=== PATIENT | female | born 1990 | race Caucasian/White ===

== ENCOUNTER 2016-10-17 13:58 | Emergency (ER) | payer OTHER ==
[2016-10-17 14:27] VITALS: BP 132/84; PULSE 100; RESP 18; TEMP 98
[2016-10-17] MEDS ORDERED: HYDROcodone/APAP 5-325MG 1 EACH TAB PO STA (15:08)
[2016-10-17] MEDS ORDERED: IBUPROFEN 600 MG TAB PO STA (15:08)
--- NOTE | 2016-10-17 15:12 | XR ---
Right ankle HISTORY: Pain and trauma 3 views of the right ankle There are 3 views of the right ankle submitted, comparison right foot same day There is marked soft tissue swelling. Some widening of the tibiotalar joint is noted laterally, there may be ligamentous laxity. There is no evident fracture. Bone mineralization and alignment are maint ained. IMPRESSION: No acute fracture or dislocation. Soft tissue swelling, there may be ligamentous laxity a t the ankle joint as described.
--- NOTE | 2016-10-17 15:13 | XR ---
Right foot HISTORY: Trauma and pain 3 views of the right foot Correlation to right ankle same date Bone mineralization, joint spaces and alignment are maintained IMPRESSION: No fracture or dislocation. Follow-up as indicated.
--- NOTE | 2016-10-17 15:31 | ED ---
Lower Extremity Injury HPI - General Chief Complaint: Extremity Injury, Lower Stated Complaint: Ankle Pain Time Seen by Provider: 10/17/16 14:45 Source: patient, RN notes reviewed Mode of arrival: wheelchair Limitations: no limitations - History of Present Illness Initial Comments: Patient is a 26-year-old female presents to the emergency room for evaluation of right ankle pain. Patient states she was walking in her yard and twisted her ankle an a hole in the ground. Patient states she crawled back into her house. Patient states that she has been having extreme pain on the lateral portion of her ankle and swelling ever since. Patient states she drove herself here. Patient states she experiences some tingling in her fourth and fifth digits. Patient states the pain radiates to the top of her foot. Patient denies taking anything for pain. Patient denies any other injuries during incident. Patient states she is having 10 out of 10 constant throbbing pain. Patient states the pain is worse when she puts weight on her foot or moves her ankle. - Related Data Previous Rx's Medication Instructions Recorded HYDROcodone/APAP 5-325MG [[place] 1 tab PO Q6HR PRN #20 tab 10/17/16 5-325] Ibuprofen [Motrin] 600 mg PO Q6HR PRN #20 tab 10/17/16 Allergies Allergy/AdvReac Type Severity Reaction Status Date / Time No Known Allergies Allergy Verified 10/17/16 14:31 Review of Systems ROS Statement: Those systems with pertinent positive or pertinent negative responses have been documented in the HPI. ROS Other: All systems not noted in ROS Statement are negative. Past Medical History Past Medical History: No Reported History History of Any Multi-Drug Resistant Organisms: None Reported Past Surgical History: No Surgical Hx Reported Past Psychological History: Depression Smoking Status: Never smoker Past Alcohol Use History: None Reported Past Drug Use History: None Reported General Exam - General Exam Comments Initial Comments: Sitting in wheelchair, no acute distress. Limitations: no limitations General appearance: alert, in no apparent distress Head exam: Present: atraumatic, normocephalic, normal inspection Eye exam: Present: normal appearance ENT exam: Present: normal exam Neck exam: Present: normal inspection Respiratory exam: Absent: respiratory distress Right Ankle exam: Present: tenderness (Lateral malleolus), swelling (Lateral malleolus ). Absent: full ROM (Limited range of motion secondary to pain) Foot/Toe exam: Present: tenderness (Dorsal portion of foot over the third, fourth and fifth metatarsal bones). Absent: full ROM (Limited range of motion secondary to pain) Neurovascular tendon exam: Present: no vascular compromise. Absent: pulse deficit (2+ dorsal pedal and posterior tibial pulses), abnormal cap refill ( Capillary refill less than 2 seconds) Back exam: Present: normal inspection Neurological exam: Present: alert, oriented X3, CN II-XII intact, normal gait Psychiatric exam: Present: normal affect, normal mood Skin exam: Present: warm, dry, intact, normal color. Absent: rash Course Vital Signs 10/17/16 14:24 Temperature 98.0 F Pulse Rate 100 Respiratory 18 Rate Blood Pressure 132/84 O2 Sat by Pulse 100 Oximetry Medical Decision Making - Medical Decision Making Patient is a 26-year-old female presents emergency room for evaluation of right ankle/foot pain. ight ankle x-ray: No acute fracture or dislocation. Soft tissue swelling. There may be ligamentous laxity at the ankle joint is described. Foot x-ray shows no acute fractures or dislocations. Patient placed in [place] wrap and ankle stirrup and given crutches and advised to follow-up with obstetrics specialist for reevaluation. Patient states she understands everything that was discussed with her. Return parameters discussed. - Radiology Data Radiology results: report reviewed, image reviewed Disposition Clinical Impression: Right ankle sprain Disposition: HOME SELF-CARE Condition: Good Instructions: Ankle Sprain (ED) Additional Instructions: Rest, elevate and ice on and off for 10-15 minutes for the next 24-48 hours. Take medications as needed for pain. Nonweightbearing for 1-2 days. Please follow-up with obstetrics specialist in 24-48 hours for reevaluation. If new symptoms develop or symptoms worsen, please return to the ER. Prescriptions: HYDROcodone/APAP 5-325MG [[place] 5-325] 1 tab PO Q6HR PRN #20 tab PRN Reason: Pain Ibuprofen [Motrin] 600 mg PO Q6HR PRN #20 tab PRN Reason: Pain Referrals: Fernando Ricks DO [Doctor of Osteopathic Medicine] - 1-2 days Time of Disposition: 15:33
== END 2016-10-17 15:49 | disposition home or self-care (01) ==
LOC: EC 13:58
DX: S93.401A Sprain of unspecified ligament of right ankle, initial encounter (principal); X50.1XXA Overexertion from prolonged static or awkward postures, initial encounter; Y93.01 Activity, walking, marching and hiking; Y92.096 Garden or yard of other non-institutional residence as the place of occurrence of the external cause
CPT/HCPCS: 73610; 73630; 99283; 29515; L4350

== ENCOUNTER 2017-08-03 01:19 | Emergency (ER) | payer OTHER ==
[2017-08-03 01:28] VITALS: BP 132/89; PULSE 109; RESP 20; TEMP 99.1
[2017-08-03] MEDS ORDERED: ACETAMINOPHEN TAB 500 MG TAB PO STA (01:48)
[2017-08-03] MEDS ORDERED: ONDANSETRON ODT 4 MG TAB PO STA (01:48)
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
--- NOTE | 2017-08-03 03:02 | XR ---
EXAMINATION TYPE: XR cervical spine limited DATE OF EXAM: 08/03/2017 COMPARISON: NONE HISTORY: Shoulder pain TECHNIQUE: 3 views FINDINGS: Cervical vertebra have normal spacing and alignment. Posterior elements are intact. Atlanto axial facet joint is normal. There are no cervical ribs. IMPRESSION: Negative cervical spine exam.
--- NOTE | 2017-08-03 03:03 | XR ---
EXAMINATION TYPE: XR thoracic spine complete DATE OF EXAM: 08/03/2017 COMPARISON: NONE HISTORY: Neck pain and back pain TECHNIQUE: 3 views FINDINGS: There is a slight mid thoracic dextroscoliosis And upper thoracic levoscoliosis Disc spaces are fairly well-maintained. Posterior limits are intact. I see no thoracic paraspinal mass. There is no sign of compression fracture. IMPRESSION: Minimal scoliosis. No fracture.
[2017-08-03] MEDS ORDERED: ONDANSETRON 4 MG ODT STARTER PACK 2 TAB BTL PO STA (03:23)
== END 2017-08-03 03:28 | disposition home or self-care (01) ==
LOC: EC 01:19
DX: S16.1XXA Strain of muscle, fascia and tendon at neck level, initial encounter (principal); M54.6 Pain in thoracic spine; M41.84 Other forms of scoliosis, thoracic region; V43.52XA Car driver injured in collision with other type car in traffic accident, initial encounter; Y92.410 Unspecified street and highway as the place of occurrence of the external cause
CPT/HCPCS: 81025; 72072; 72040; 99284; S0119

== ENCOUNTER 2017-09-02 21:08 | Emergency (ER) | payer OTHER ==
--- NOTE | 2017-09-02 21:55 | XR ---
EXAMINATION TYPE: XR chest 2V DATE OF EXAM: 09/02/2017 CLINICAL HISTORY: Pain TECHNIQUE: Frontal and lateral views of the chest are obtained. COMPARISON: None FINDINGS: There is no focal air space opacity, pleural effusion, or pneumothorax seen. The cardiac silhouette size is within normal limits. The osseous structures are intact. IMPRESSION: No acute cardiopulmonary process.
[2017-09-02] MEDS ORDERED: IPRATROPIUM-ALBUTEROL 3 ML NEB INHALATION STA (22:01)
[2017-09-02 22:19] VITALS: PULSE 82
--- NOTE | 2017-09-02 23:01 | ED ---
General Adult HPI - General Chief complaint: Upper Respiratory Infection Stated complaint: SOB Time Seen by Provider: 09/02/17 21:46 Source: patient, RN notes reviewed Mode of arrival: ambulatory Limitations: no limitations - History of Present Illness Initial comments: 27-year-old female presents to the emergency department for a chief complaint of cough and congestion 3 days. Patient states she has been very congested and feels like her ears are popping. Patient denies pain in her ears. Patient has also had a productive cough. Patient denies shortness of breath. Patient denies history of asthma or smoking. Patient states she had bronchitis last year for which she has an inhaler for. Patient has only tried nasal spray for this bout of cough and congestion. She states her mother wanted her to take Claritin but she didn't think it would work. Patient denies any other complaints such as shortness of breath, chest pain, abdominal pain, headaches, dizziness, visual changes, nausea or vomiting. - Related Data Home Medications Medication Instructions Recorded Confirmed Loratadine [Claritin] 10 mg PO ONCE PRN 09/02/17 09/02/17 Previous Rx's Medication Instructions Recorded Albuterol Inhaler [Ventolin Hfa 1 - 2 puff INHALATION Q6HR PRN #1 09/02/17 Inhaler] inhaler Azithromycin [Zithromax Z-pack] 250 mg PO DIRECTED #6 tab 09/02/17 Benzonatate [Tessalon Perles] 100 mg PO Q8H PRN #15 capsule 09/02/17 methylPREDNISolone Dose Pack 4 mg PO DIRECTED #21 package 09/02/17 [Medrol Dose Pack] Allergies Allergy/AdvReac Type Severity Reaction Status Date / Time No Known Allergies Allergy Verified 09/02/17 21:49 Review of Systems ROS Statement: Those systems with pertinent positive or pertinent negative responses have been documented in the HPI. ROS Other: All systems not noted in ROS Statement are negative. Past Medical History Past Medical History: No Reported History History of Any Multi-Drug Resistant Organisms: None Reported Past Surgical History: No Surgical Hx Reported Past Psychological History: Depression Smoking Status: Never smoker Past Alcohol Use History: Occasional Past Drug Use History: None Reported General Exam Limitations: no limitations General appearance: alert, in no apparent distress Head exam: Present: atraumatic, normocephalic, normal inspection Eye exam: Present: normal appearance, PERRL, EOMI. Absent: scleral icterus, conjunctival injection, periorbital swelling ENT exam: Present: normal oropharynx, mucous membranes moist, TM's normal bilaterally, other (patient has nasal congestion) Neck exam: Present: normal inspection, full ROM. Absent: tenderness, meningismus, lymphadenopathy Respiratory exam: Present: normal lung sounds bilaterally, other (Patient is coughing on exam). Absent: respiratory distress, wheezes, rales, rhonchi, stridor Cardiovascular Exam: Present: regular rate, normal rhythm, normal heart sounds. Absent: systolic murmur, diastolic murmur, rubs, gallop, clicks Course Vital Signs 09/02/17 09/02/17 09/02/17 21:14 22:12 22:19 Temperature 97.8 F Pulse Rate 98 80 82 Respiratory 20 16 16 Rate Blood Pressure 122/72 O2 Sat by Pulse 97 Oximetry 09/02/17 23:07 Temperature 98.0 F Pulse Rate 82 Respiratory 18 Rate Blood Pressure 128/70 O2 Sat by Pulse 98 Oximetry Medical Decision Making - Medical Decision Making 27-year-old female presents to the emergency department for a chief complaint of cough and congestion 3 days. Patient denies any shortness of breath or difficulty breathing. Patient has not really tried any [id number] things besides nasal spray which she will continue. Patient is afebrile and vitals are within normal limits: Temp is 97.8, pulse is 98, respirations 20, blood pressure 122/72, pulse ox 97% on room air. On exam patient's lungs are clear to auscultation bilaterally. Patient is visibly congested. Tympanic membranes are normal and throat is nonerythematous. Chest x-ray shows no acute cardiopulmonary process including pneumonia. Influenza and strep were negative. Patient will be treated with an albuterol inhaler, Tessalon Perles, Z -Jass, and steroid. She will continue to take nasal spray [id number]. She will take Motrin or Tylenol for pain or fever. She will return to the emergency Department if she has any worsening symptoms including spiking fevers or shortness of breath. She will follow up with primary care in 1-2 days. - Lab Data Lab Results 09/02/17 09/02/17 Range/Units 22:10 22:10 Influenza Type A RNA Not Detected (Not Detectd) Influenza Type B (PCR) Not Detected (Not Detectd) Group A Strep Rapid Negative (Negative) Disposition Clinical Impression: Upper respiratory infection Disposition: HOME SELF-CARE Condition: Good Instructions: Upper Respiratory Infection (ED) Additional Instructions: Please take prescriptions as directed. Please also take an [id number] decongestant and continue the nasal spray you have at home twice a day. Motrin and Tylenol for pain. Follow up with primary care in 1-2 days. You may call [facility] to set up an appointment if you cannot follow up with a primary care provider of your own. Return to the emergency department if you have any worsening symptoms, shortness of breath, trouble breathing, or high fevers. Prescriptions: Albuterol Inhaler [Ventolin Hfa Inhaler] 1 - 2 puff INHALATION Q6HR PRN #1 inhaler PRN Reason: Cough Azithromycin [Zithromax Z-pack] 250 mg PO DIRECTED #6 tab Benzonatate [Tessalon Perles] 100 mg PO Q8H PRN #15 capsule PRN Reason: Cough methylPREDNISolone Dose Pack [Medrol Dose Pack] 4 mg PO DIRECTED #21 package Is patient prescribed a controlled substance at d/c from ED?: No Referrals: None,Stated [Primary Care Provider] - 1-2 days Time of Disposition: 22:54
[2017-09-02 23:08] VITALS: BP 128/70; RESP 18; TEMP 98
== END 2017-09-02 23:08 | disposition home or self-care (01) ==
LOC: EC 21:08
DX: J06.9 Acute upper respiratory infection, unspecified (principal)
CPT/HCPCS: 71046; 87081; 87430; 87502; 94640; 99285

== ENCOUNTER 2021-09-13 15:54 | Emergency (ER) | payer OTHER ==
[2021-09-13 17:23] VITALS: TEMP 98.2
[2021-09-13 17:37] LABS: Appearance,Urine Cloudy (Clear); Bilirubin,Urine Negative (Negative); Blood,Urine Large (Negative); Color,Urine Yellow; Glucose,Urine (UA) Negative (Negative); Ketones,Urine Negative (Negative); Leukocyte Esterase,Urine Small (Negative); Mucus,Urine Rare /hpf; Nitrite,Urine Negative (Negative); Protein,Urine Trace (Negative); RBC,Urine >182 /hpf (0-5); Specific Gravity,Urine 1.018 (1.001-1.035); Squamous Epithelial Cell,Urine 1 /hpf (0-4); Urobilinogen,Urine <2.0 mg/dL (<2.0); WBC,Urine 13 /hpf (0-5)
[2021-09-13 18:24] LABS: Basophils % (A) 0 %; Eosinophils # (A) 0.2 k/uL (0-0.7); Eosinophils % (A) 2 %; HCT 39.5 % (34.0-46.0); HGB 12.8 gm/dL (11.4-16.0); Lymphocytes # (A) 2.4 k/uL (1.0-4.8); Lymphocytes % (A) 23 %; MCH 27.5 pg (25.0-35.0); MCHC 32.4 g/dL (31.0-37.0); MCV 84.9 fL (80.0-100.0); Mean Platelet Volume 7.2; Monocytes # (A) 0.4 k/uL (0-1.0); Monocytes % (A) 4 %; Neutrophils # (A) 7.6 k/uL (1.3-7.7); Neutrophils % (A) 71 %; Platelet Count 351 k/uL (150-450); RBC 4.65 m/uL (3.80-5.40); WBC 10.7 k/uL (3.8-10.6)
[2021-09-13 18:29] LABS: ALT 12 U/L (4-34); AST 17 U/L (14-36); African American GFR (CKD) >90 (>60 ml/min/1.73 sqM); Albumin 4.4 g/dL (3.5-5.0); Alkaline Phosphatase 77 U/L (38-126); Anion Gap 9 mmol/L; Blood Urea Nitrogen 11 mg/dL (7-17); Calcium 8.8 mg/dL (8.4-10.2); Carbon Dioxide 23 mmol/L (22-30); Chloride 107 mmol/L (98-107); Glucose 98 mg/dL (74-99); Non-African American GFR(CKD) >90 (>60 ml/min/1.73 sqM); Potassium 3.8 mmol/L (3.5-5.1); Sodium 139 mmol/L (137-145); Total Bilirubin 0.4 mg/dL (0.2-1.3); Total Protein 7.6 g/dL (6.3-8.2)
[2021-09-13] MEDS ORDERED: SODIUM CHLORIDE 0.9% 1,000 ML IV STA (22:07)
[2021-09-13] MEDS ORDERED: ONDANSETRON 4 MG/2 ML VIAL IVP STA (22:07)
[2021-09-13] MEDS ORDERED: KETOROLAC 15 MG/ML 1 ML VIAL IVP STA (22:07)
[2021-09-13 22:40] VITALS: BP 135/94; PULSE 77; RESP 20
--- NOTE | 2021-09-13 23:09 | ED ---
General Adult HPI - General Chief complaint: Vaginal Bleeding Stated complaint: dizziness, vaginal bleeding Time Seen by Provider: 09/13/21 20:56 Source: patient, RN notes reviewed Mode of arrival: wheelchair Limitations: no limitations - History of Present Illness Initial comments: 31-year-old female presents to the emergency department for evaluation of heavy vaginal bleeding. Menstrual period started yesterday. Patient states she is uncertain if she is . Also complains of lower abdominal cramping and mild nausea. Patient states she is very anxious. Reports passing large blood clot today. Denies fever, chills, dizziness, chest pain, shortness of breath, diarrhea, dysuria, and menstrual irregularity. No new sexual partners or trau matic intercourse. - Related Data Home Medications Medication Instructions Recorded Confirmed No Known Home Medications 09/13/21 09/13/21 Allergies Allergy/AdvReac Type Severity Reaction Status Date / Time No Known Allergies Allergy Verified 09/13/21 21:08 Review of Systems ROS Statement: Those systems with pertinent positive or pertinent negative responses have been documented in the HPI. ROS Other: All systems not noted in ROS Statement are negative. Past Medical History Past Medical History: No Reported History History of Any Multi-Drug Resistant Organisms: None Reported Past Surgical History: No Surgical Hx Reported Past Psychological History: Depression Smoking Status: Never smoker Past Alcohol Use History: Occasional Past Drug Use History: None Reported General Exam Limitations: no limitations (Well-developed, well-nourished female in no acute distress. Initial temperature 98.2, pulse 89, respirations 16, blood pressure 153/92, pulse ox 100% on room air.) General appearance: alert, in no apparent distress ENT exam: Present: normal oropharynx, mucous membranes moist Neck exam: Present: normal inspection, full ROM. Absent: tenderness, meningismus, lymphadenopathy Respiratory exam: Present: normal lung sounds bilaterally. Absent: respiratory distress, wheezes, rales, rhonchi, stridor Cardiovascular Exam: Present: regular rate, normal rhythm, normal heart sounds. Absent: systolic murmur, diastolic murmur, rubs, gallop, clicks GI/Abdominal exam: Present: soft, normal bowel sounds. Absent: distended, tenderness, guarding, rebound, rigid External exam: Present: normal external exam Speculum exam: Present: normal speculum exam, vaginal bleeding (moderate amount of dark red bleeding; no clots, trauma, or foreign body visualized upon speculum exam.). Absent: tissue, laceration By manual exam: Present: normal by manual exam. Absent: cervical motion tenderness, adnexal tenderness, adnexal mass, uterine enlargement, uterine tenderness Back exam: Absent: CVA tenderness (R), CVA tenderness (L) Neurological exam: Present: alert, oriented X3, CN II-XII intact Psychiatric exam: Present: anxious Skin exam: Present: warm, dry, intact, normal color. Absent: rash Course Vital Signs 09/13/21 09/13/21 09/13/21 17:19 20:56 22:39 Temperature 98.2 F Pulse Rate 89 84 77 Respiratory 16 16 20 Rate Blood Pressure 153/92 127/96 135/94 O2 Sat by Pulse 100 100 100 Oximetry - Reevaluation(s) Reevaluation #1: 09/13/21 22:15 Speculum exam performed. Manager Of Business present at bedside. Patient tolerated exam well with minimal anxiety or discomfort. Normal speculum exam. Will be discharged home to follow up with RN [facility] for further evaluation and treatment. Medical Decision Making - Medical Decision Making 31-year-old female, , presents to the emergency department for evaluation of heavy vaginal bleeding. Upon exam, patient is anxious but well-appearing and in no acute distress. Her physical exam findings are unremarkable. She does have a moderate amount of dark red vaginal bleeding consistent with normal menstrual cycle. There are no clots, injury, or foreign body noted upon speculum exam. The patient was given IV fluids and Toradol for her discomfort with modest improvement. She was instructed to reestablish care with [facility] in follow-up for further evaluation and treatment. Prescribed Motrin for cramping discomfort. Encouraged increase hydration. Suggested application of heat. Return parameters discussed in detail. Patient verbalizes understanding and agrees with this plan. Attending: Aline. - Lab Data Result diagrams: 09/13/21 18:14 09/13/21 18:14 Lab Results 09/13/21 09/13/21 09/13/21 Range/Units 17:23 17:23 18:14 WBC 10.7 H (3.8-10.6) k/uL RBC 4.65 (3.80-5.40) m/uL Hgb 12.8 (11.4-16.0) gm/dL Hct 39.5 (34.0-46.0) % MCV 84.9 (80.0-100.0) fL MCH 27.5 (25.0-35.0) pg MCHC 32.4 (31.0-37.0) g/dL RDW 14.0 (11.5-15.5) % Plt Count 351 (150-450) k/uL MPV 7.2 Neutrophils % 71 % Lymphocytes % 23 % Monocytes % 4 % Eosinophils % 2 % Basophils % 0 % Neutrophils # 7.6 (1.3-7.7) k/uL Lymphocytes # 2.4 (1.0-4.8) k/uL Monocytes # 0.4 (0-1.0) k/uL Eosinophils # 0.2 (0-0.7) k/uL Basophils # 0.0 (0-0.2) k/uL Sodium (137-145) mmol/L Potassium (3.5-5.1) mmol/L Chloride (98-107) mmol/L Carbon Dioxide (22-30) mmol/L Anion Gap mmol/L BUN (7-17) mg/dL Creatinine (0.52-1.04) mg/dL Est GFR (CKD-EPI)AfAm (>60 ml/min/1.73 sqM) Est GFR (CKD-EPI)NonAf (>60 ml/min/1.73 sqM) Glucose (74-99) mg/dL Calcium (8.4-10.2) mg/dL Total Bilirubin (0.2-1.3) mg/dL AST (14-36) U/L ALT (4-34) U/L Alkaline Phosphatase (38-126) U/L Total Protein (6.3-8.2) g/dL Albumin (3.5-5.0) g/dL Urine Color Yellow Urine Appearance Cloudy H (Clear) Urine pH 8.0 (5.0-8.0) Ur Specific [place] 1.018 (1.001-1.035) Urine Protein Trace H (Negative) Urine Glucose (UA) Negative (Negative) Urine Ketones Negative (Negative) Urine Blood Large H (Negative) Urine Nitrite Negative (Negative) Urine Bilirubin Negative (Negative) Urine Urobilinogen <2.0 (<2.0) mg/dL Ur Leukocyte Esterase Small H (Negative) Urine RBC >182 H (0-5) /hpf Urine WBC 13 H (0-5) /hpf Ur Squamous Epith Cells 1 (0-4) /hpf Urine Mucus Rare H (None) /hpf Urine HCG, Qual Not Detected (Not Detectd) 09/13/21 Range/Units 18:14 WBC (3.8-10.6) k/uL RBC (3.80-5.40) m/uL Hgb (11.4-16.0) gm/dL Hct (34.0-46.0) % MCV (80.0-100.0) fL MCH (25.0-35.0) pg MCHC (31.0-37.0) g/dL RDW (11.5-15.5) % Plt Count (150-450) k/uL MPV Neutrophils % % Lymphocytes % % Monocytes % % Eosinophils % % Basophils % % Neutrophils # (1.3-7.7) k/uL Lymphocytes # (1.0-4.8) k/uL Monocytes # (0-1.0) k/uL Eosinophils # (0-0.7) k/uL Basophils # (0-0.2) k/uL Sodium 139 (137-145) mmol/L Potassium 3.8 (3.5-5.1) mmol/L Chloride 107 (98-107) mmol/L Carbon Dioxide 23 (22-30) mmol/L Anion Gap 9 mmol/L BUN 11 (7-17) mg/dL Creatinine 0.80 (0.52-1.04) mg/dL Est GFR (CKD-EPI)AfAm >90 (>60 ml/min/1.73 sqM) Est GFR (CKD-EPI)NonAf >90 (>60 ml/min/1.73 sqM) Glucose 98 (74-99) mg/dL Calcium 8.8 (8.4-10.2) mg/dL Total Bilirubin 0.4 (0.2-1.3) mg/dL AST 17 (14-36) U/L ALT 12 (4-34) U/L Alkaline Phosphatase 77 (38-126) U/L Total Protein 7.6 (6.3-8.2) g/dL Albumin 4.4 (3.5-5.0) g/dL Urine Color Urine Appearance (Clear) Urine pH (5.0-8.0) Ur Specific [place] (1.001-1.035) Urine Protein (Negative) Urine Glucose (UA) (Negative) Urine Ketones (Negative) Urine Blood (Negative) Urine Nitrite (Negative) Urine Bilirubin (Negative) Urine Urobilinogen (<2.0) mg/dL Ur Leukocyte Esterase (Negative) Urine RBC (0-5) /hpf Urine WBC (0-5) /hpf Ur Squamous Epith Cells (0-4) /hpf Urine Mucus (None) /hpf Urine HCG, Qual (Not Detectd) Disposition Clinical Impression: Dysmenorrhea Disposition: HOME SELF-CARE Condition: Stable Instructions (If sedation given, give patient instructions): Dysmenorrhea (ED) Additional Instructions: Take Motrin if needed for cramping discomfort. Increase intake of fluids. Reestablish care with RN [facility] for further evaluation and treatment. Call the office in the morning to schedule an appointment to be seen next week. Carefully track your period. Return to the emergency department with any new, worsening, or concerning symptoms. Is patient prescribed a controlled substance at d/c from ED?: No Referrals: None,Stated [Primary Care Provider] - 1-2 days
== END 2021-09-14 00:30 | disposition home or self-care (01) ==
LOC: EC 15:54
DX: N94.6 Dysmenorrhea, unspecified (principal)
CPT/HCPCS: 36415; 80053; 85025; 81001; 81025; 87086; 99284; 96374; 96375; 96361; J2405; J1885

== ENCOUNTER 2021-11-04 20:08 | Emergency (ER) | payer OTHER ==
[2021-11-04 20:40] VITALS: TEMP 99
[2021-11-04] MEDS ORDERED: MORPHINE SULFATE 4 MG/ML SYRINGE IM STA (21:40)
[2021-11-04 21:50] VITALS: RESP 18
--- NOTE | 2021-11-04 22:16 | XR ---
EXAMINATION TYPE: XR ankle complete RT DATE OF EXAM: 11/04/2021 COMPARISON: NONE HISTORY: Pain TECHNIQUE: 3 views FINDINGS: Ankle mortise is anatomic. There is mild soft tissue swelling around the ankle joint. Joint spaces are normal. IMPRESSION: Mild soft tissue swelling. No fracture seen.
--- NOTE | 2021-11-04 22:22 | ED ---
Lower Extremity Injury HPI - General Chief Complaint: Extremity Injury, Lower Stated Complaint: Fall-R ankle injury Time Seen by Provider: 11/04/21 21:29 Source: patient, family Mode of arrival: ambulatory Limitations: no limitations - History of Present Illness Initial Comments: This is a 31-year-old female who presents to the emergency department with chief complaint of right ankle pain. Patient states she stepped in a hole and rolled her ankle inward. States she endorses pain on the outside of her right ankle. Patient has attempted to walk on the ankle due to pain. Patient states she has fractured this ankle before. Denies numbness and tingling. - Related Data Home Medications Medication Instructions Recorded Confirmed No Known Home Medications 09/13/21 09/13/21 Allergies Allergy/AdvReac Type Severity Reaction Status Date / Time No Known Allergies Allergy Verified 11/04/21 20:40 Review of Systems ROS Statement: Those systems with pertinent positive or pertinent negative responses have been documented in the HPI. ROS Other: All systems not noted in ROS Statement are negative. Past Medical History Past Medical History: No Reported History History of Any Multi-Drug Resistant Organisms: None Reported Past Surgical History: No Surgical Hx Reported Past Psychological History: Depression Smoking Status: Never smoker Past Alcohol Use History: Occasional Past Drug Use History: None Reported General Exam Limitations: no limitations General appearance: alert, in no apparent distress Head exam: Present: atraumatic, normocephalic, normal inspection Eye exam: Present: normal appearance, PERRL, EOMI. Absent: scleral icterus, conjunctival injection, periorbital swelling Respiratory exam: Present: normal lung sounds bilaterally. Absent: respiratory distress, wheezes, rales, rhonchi, stridor Cardiovascular Exam: Present: regular rate, normal rhythm, normal heart sounds. Absent: systolic murmur, diastolic murmur, rubs, gallop, clicks Right Lower Leg exam: Present: normal inspection, full ROM. Absent: tenderness, swelling Ankle exam: Present: full ROM, tenderness (Moderate in the lateral ankle), swelling (Mild in the lateral ankle). Absent: normal inspection, abrasion, l aceration, ecchymosis, deformity, dislocation, erythema, anterior draw sign Foot/Toe exam: Present: normal inspection, full ROM. Absent: tenderness, swelling, abrasion, laceration, ecchymosis, deformity, erythema Neurovascular tendon exam: Present: no vascular compromise. Absent: pulse deficit, abnormal cap refill, motor deficit, sensory deficit, tendon deficit, extremity cold to touch, pallor Course Vital Signs 11/04/21 11/04/21 11/04/21 20:36 21:49 22:52 Temperature 99 F Pulse Rate 99 103 H 96 Respiratory 20 18 18 Rate Blood Pressure 134/81 128/79 O2 Sat by Pulse 100 98 99 Oximetry Procedures - Orthopedic Splinting/Casting Injury #1 Side: right Upper Extremity Immobilizer: Feliberto wrap Lower Extremity Injury Location: ankle Lower Extremity Immobilizer: stirrup splint Other Orthopedic Equipment: crutches Medical Decision Making - Medical Decision Making This is a 31-year-old female who presents for evaluation of right ankle pain. Thorough history and examination were performed. There is mild swelling of the right ankle laterally with moderate tenderness to palpation. Neurovascularly intact. Full range of motion. Right ankle x-ray is negative for fracture or dislocation. Results discussed with patient. The right ankle was wrapped in Feliberto wrap and placed in an ankle stirrup. Crutches were given for comfort. RICE education provided in detail. Patient is to bear weight on ankle as tolerated. She is to follow-up with embroidery specialist in 1-2 weeks if symptoms do not improve. Return parameters discussed. Patient verbalizes understanding and is agreeable to this plan. Dr. Clifford is my attending. Disposition Clinical Impression: Ankle pain, right Disposition: HOME SELF-CARE Condition: Good Instructions (If sedation given, give patient instructions): Swollen Joint (ED) Additional Instructions: Rest, ice, and elevate the right ankle as much as possible. Take medication as directed. When you run out you may take Tylenol or Motrin as needed for pain. Keep the Feliberto wrap and splint on for comfort. Use crutches, bearing weight as tolerated. Follow-up with embroidery specialist if symptoms do not improve in 1-2 weeks. Return to the emergency department if you experience new, concerning, or worsening symptoms Is patient prescribed a controlled substance at d/c from ED?: No Referrals: None,Stated [Primary Care Provider] - 1-2 days Drew Milner MD [STAFF PHYSICIAN] - 1-2 days
[2021-11-04] MEDS ORDERED: ACET/COD 300 MG/30 MG STARTER PACK 6 TAB BTL PO STA (22:34)
[2021-11-04 22:59] VITALS: BP 128/79; PULSE 96
== END 2021-11-04 23:01 | disposition home or self-care (01) ==
LOC: EC 20:08
DX: W19.XXXA Unspecified fall, initial encounter (principal)
CPT/HCPCS: 73610; 29515; 99284; 96372; J2270

== ENCOUNTER 2023-05-13 21:32 | Emergency (ER) | payer OTHER ==
[2023-05-13 21:49] VITALS: RESP 20
[2023-05-13 22:12] LABS: Amorphous Sediment,Urine Occasional /hpf; Appearance,Urine Cloudy (Clear); Bacteria,Urine Few /hpf; Bilirubin,Urine Negative (Negative); Blood,Urine Large (Negative); Color,Urine Yellow; Glucose,Urine (UA) Negative (Negative); Hyaline Casts,Urine 17 /lpf (0-2); Ketones,Urine Negative (Negative); Leukocyte Esterase,Urine Negative (Negative); Mucus,Urine Many /hpf; Nitrite,Urine Negative (Negative); PH, Urine 7.5 (5.0-8.0); Protein,Urine Trace (Negative); RBC,Urine >182 /hpf (0-5); Specific Gravity,Urine 1.023 (1.001-1.035); Squamous Epithelial Cell,Urine 3 /hpf (0-4); Urobilinogen,Urine <2.0 mg/dL (<2.0); WBC,Urine 8 /hpf (0-5)
[2023-05-13] MEDS ORDERED: PROCHLORPERAZINE INJ 10 MG/2 ML VIAL IM STA (23:18)
[2023-05-13] MEDS ORDERED: diphenhydrAMINE 50 MG/ML 1 ML VIAL IM STA (23:18)
[2023-05-13] MEDS ORDERED: ACETAMINOPHEN TAB 325 MG TAB PO STA (23:21)
--- NOTE | 2023-05-14 00:16 | ED ---
General Adult HPI - General Chief complaint: Headache Stated complaint: Headache,Dizziness,poss preg Time Seen by Provider: 05/14/23 00:03 Source: patient, RN notes reviewed Mode of arrival: wheelchair Limitations: no limitations - History of Present Illness Initial comments: 32 year old female with no significant past medical history presents the emergency Department chief complaint of headache. Patient reports sudden onset headache that is generalized that started around 6 PM. She also said reporting generalized malaise, nausea and vomiting. She did attempt to eat something however she productive vomited. She denies any known fevers. Denies any injury or trauma. Denies any numbness, tingling or weakness in extremities. - Related Data Previous Rx's Medication Instructions Recorded Famotidine [Pepcid] 20 mg PO BID #28 tablet 05/14/23 Ondansetron Odt [Zofran Odt] 4 mg PO Q8HR PRN #10 tab 05/14/23 Allergies Allergy/AdvReac Type Severity Reaction Status Date / Time No Known Allergies Allergy Verified 05/13/23 21:39 Review of Systems ROS Statement: Those systems with pertinent positive or pertinent negative responses have been documented in the HPI. ROS Other: All systems not noted in ROS Statement are negative. Past Medical History Past Medical History: No Reported History Additional Past Medical History / Comment(s): anemia History of Any Multi-Drug Resistant Organisms: None Reported Past Surgical History: No Surgical Hx Reported Past Psychological History: Depression Smoking Status: Never smoker Past Alcohol Use History: Occasional Past Drug Use History: None Reported General Exam - General Exam Comments Initial Comments: General: Alert, in no acute distress Head: atraumatic normocephalic. Eyes PERRL, EOMI intact, mucous membranes moist Respiratory: Lungs clear to auscultation bilaterally Cardiovascular: Heart rate regular and rhtyhm Abdominal: Soft without guarding or rebound Extremities: Normal inspection with full range of motion and normal capillary refill Neuroogic: alert and oriented 3, CN II-XII intact, able to ambulate with steady gait Skin: warm dry and intact with normal color Limitations: no limitations Course Vital Signs 05/13/23 05/14/23 21:35 00:16 Temperature 97.9 F 98.3 F Pulse Rate 96 91 Respiratory 20 20 Rate Blood Pressure 140/85 121/81 O2 Sat by Pulse 99 96 Oximetry - Reevaluation(s) Reevaluation #1: 01/10/24 00:13 Patient re-evaluated. Updated on results. Agreeable with the plan for discharge. All questions addressed. Medical Decision Making - Medical Decision Making Was pt. sent in by a medical professional or institution (CHRISTIANO Seymour, INTERNATIONAL MARKETING COORDINATOR, urgent care, hospital, or group home...) When possible be specific @ -[No] Did you speak to anyone other than the patient for history (EMS, parent, family, police, friend...)? What history was obtained from this source @ -[No] Did you review nursing and triage notes (agree or disagree)? Why? @ -[I reviewed and agree with nursing and triage notes] Were old charts reviewed (outside hosp., previous admission, EMS record, old EKG, old radiological studies, urgent care reports/EKG's, group home records)? Report findings @ -[No old charts were reviewed] Differential Diagnosis (chest pain, altered mental status, abdominal pain women, abdominal pain men, vaginal bleeding, weakness, fever, dyspnea, syncope, headache, dizziness, GI bleed, back pain, seizure, CVA, palpatations, mental health, musculoskeletal)? @ -[not applicable] EKG interpreted by me (3pts min.). @ -[As above] X-rays interpreted by me (1pt min.). @ -[None done] CT interpreted by me (1pt min.). @ -[None done] U/S interpreted by me (1pt. min.). @ -[None done] What testing was considered but not performed or refused? (CT, X-rays, U/S, labs)? Why? @ -[None] What meds were considered but not given or refused? Why? @ -[None] Did you discuss the management of the patient with other professionals (professionals i.e. CHRISTIANO Seymour, INTERNATIONAL MARKETING COORDINATOR, lab, RT, psych nurse, oncology social work, vice president education, teacher, lodge officer, case advocate)? Give summary @ -[No] Was smoking cessation discussed for >3mins.? @ -[No] Was critical care preformed (if so, how long)? @ -[No] Were there social determinants of health that impacted care today? How? (Homelessness, low income, unemployed, alcoholism, drug addiction, transportation, low edu. Level, literacy, decrease access to med. care, [facility], rehab)? @ -[No] Was there de-escalation of care discussed even if they declined (Discuss DNR or withdrawal of care, Hospice)? DNR status @ -[No] What co-morbidities impacted this encounter? (DM, HTN, Smoking, COPD, CAD, Cancer, CVA, ARF, Chemo, Hep., AIDS, mental health diagnosis, sleep apnea, morbid obesity)? @ -[None] Was patient admitted / discharged? Hospital course, mention meds given and route, prescriptions, significant lab abnormalities, going to OR and other pertinent info. @ -Discharged. This is a pleasant the emergency department the chief complaint of headache, nausea, vomiting and generalized malaise. Patient had a thorough history and physical exam performed. Patient is nontoxic and non-ill appearing. Vital signs are stable upon evaluation. Patient had urinalysis, I will testing and tests which were negative. I discussed results in detail with the patient verbalized understanding all questions addressed. She was provided Tylenol. She is provided prescription for Zofran and Pepcid. Return precautions were discussed at length. Discharged in stable condition. Case is discussed with Dr. Camacho, ED attending who agrees with plan of care Undiagnosed new problem with uncertain prognosis? @ -[No] Drug Therapy requiring intensive monitoring for toxicity (Heparin, Nitro, Insulin, Cardizem)? @ -[No] Were any procedures done? @ -[No] Diagnosis/symptom? @ -Headache -Nausea and vomiting Acute, or Chronic, or Acute on Chronic? @ Acute Uncomplicated (without systemic symptoms) or Complicated (systemic symptoms)? @ -Uncomplicated Side effects of treatment? @ -[No] Exacerbation, Progression, or Severe Exacerbation? @ -[No] Poses a threat to life or bodily function? How? (Chest pain, [place], [place], pneumonia, PE, COPD, DKA, ARF, appy, cholecystitis, CVA, Diverticulitis, Homicidal, Suicidal, threat to staff... and all critical care pts) @ -Low likelihood - Lab Data Lab Results 05/13/23 05/13/23 05/13/23 Range/Units 21:41 21:41 21:41 Urine Color Yellow Urine Appearance Cloudy H (Clear) Urine pH 7.5 (5.0-8.0) Ur Specific [place] 1.023 (1.001-1.035) Urine Protein Trace H (Negative) Urine Glucose (UA) Negative (Negative) Urine Ketones Negative (Negative) Urine Blood Large H (Negative) Urine Nitrite Negative (Negative) Urine Bilirubin Negative (Negative) Urine Urobilinogen <2.0 (<2.0) mg/dL Ur Leukocyte Esterase Negative (Negative) Urine RBC >182 H (0-5) /hpf Urine WBC 8 H (0-5) /hpf Ur Squamous Epith Cells 3 (0-4) /hpf Amorphous Sediment Occasional H (None) /hpf Urine Bacteria Few H (None) /hpf Hyaline Casts 17 H (0-2) /lpf Urine Mucus Many H (None) /hpf Urine HCG, Qual Not Detected (Not Detectd) Influenza Type A (PCR) Not Detected (Not Detectd) Influenza Type B (PCR) Not Detected (Not Detectd) RSV (PCR) Not Detected (Not Detectd) SARS-CoV-2 (PCR) Not Detected (Not Detectd) Disposition Clinical Impression: Nausea & vomiting, Headache Disposition: HOME SELF-CARE Condition: Stable Instructions (If sedation given, give patient instructions): Acute Headache (ED) Additional Instructions: Please take zofran for nausea Please take pepcid for acid reflux Please return to the emergency department if worsening symptoms, high fever, or shortness of breath develop Prescriptions: Famotidine [Pepcid] 20 mg PO BID #28 tablet Ondansetron Odt [Zofran Odt] 4 mg PO Q8HR PRN #10 tab PRN Reason: Nausea Is patient prescribed a controlled substance at d/c from ED?: No Forms: PH Area PCPs Time of Disposition: 00:16
[2023-05-14 01:23] VITALS: BP 121/81; PULSE 91; TEMP 98.3
== END 2023-05-14 00:21 | disposition home or self-care (01) ==
LOC: EC 21:32
DX: R11.2 Nausea with vomiting, unspecified (principal); R51.9 Headache, unspecified; Z86.59 Personal history of other mental and behavioral disorders; Z20.822 Contact with and (suspected) exposure to COVID-19
CPT/HCPCS: 81001; 81025; 87636; 99284